=== PATIENT | female | born 1970 | race Caucasian/White ===

== ENCOUNTER 2020-04-22 17:30 | Outpatient (CLI) | payer OTHER | END 2020-04-22 17:31 | disposition home or self-care (01) | LOC: SLEEPLAB 17:30 | PROVIDERS: ATTEND Family Medicine | DX: G47.33 Obstructive sleep apnea (adult) (pediatric) (principal); R53.83 Other fatigue | CPT/HCPCS: 95806 ==

== ENCOUNTER 2020-10-10 10:16 | Outpatient (CLI) | payer OTHER ==
[2020-10-10 12:25] LABS: Bilirubin Neg (Negative); Blood, Urine Negative (Negative); Clarity Clear (Clear); Glucose, Urine (Dipstick) Normal (Negative); Ketone, Urine Negative (Negative); Leukocyte Negative (Negative); Nitrite Negative (Negative); Protein, Urine (Dipstick) Negative (Neg-Trace); Urobilinogen Normal mg/dL (Less than 2)
[2020-10-10 12:41] LABS: #Basophils 0.1 10x3/uL (0.0-0.2); #Eosinphils 0.2 10x3/uL (0.0-0.5); #Monocytes 0.8 10x3/uL (0.0-1.1); #Neutrophils 4.3 10x3/uL (1.5-8.4); %Basophils 0.8 % (0.0-2.0); %Eosinophils 2.8 % (0.0-6.0); %Lymphocytes 37.9 % (18.0-47.0); %Monocytes 8.9 % (0.0-10.0); Hemoglobin 12.6 g/dL (12.0-15.5); Mean Corpuscular HGB CONC 33.7 g/dL (32.0-36.0); Mean Corpuscular Hemoglobin 27.9 pg (27.0-33.0); Mean Corpuscular Volume 82.7 fl (81.6-98.3); Mean Platelet Volume 9.7 fl (7.4-10.4); Platelet Count 347 10x3/uL (150-450); RBC Distribution Width 13.2 % (11.5-14.5); Red Blood Cell (RBC) Count 4.52 10x6/uL (3.90-5.03); White Blood Cell (WBC) Count 8.7 10x3/uL (3.5-10.5)
[2020-10-10 12:52] LABS: RBC/HPF None Seen HPF (0-3)
[2020-10-10 13:12] LABS: INR-International Normal Ratio 0.9; Prothrombin Time 9.3 sec (9.5-12.1)
[2020-10-10 13:14] LABS: Anion Gap 14 mmol/L (10-20); BUN (Urea Nitrogen) 8 mg/dL (7.0-18.7); Calc. Creatinine Clearance 0 mL/min (70-130); Calcium 9.7 mg/dL (7.8-10.44); Carbon Dioxide 25 mmol/L (22-29); Chloride 102 mmol/L (98-107); Glucose 93 mg/dL (70-105); Potassium 4.7 mmol/L (3.5-5.1); Sodium 136 mmol/L (136-145)
[2020-10-11 03:31] LABS: SARS-CoV-2 NAA Rapid Test Not Detected (NotDetected)
== END 2020-10-10 10:17 | disposition home or self-care (01) ==
LOC: LABBT 10:16
PROVIDERS: ATTEND Orthopaedic Surgery
DX: Z01.818 Encounter for other preprocedural examination (principal); Z20.822 Contact with and (suspected) exposure to COVID-19; M17.12 Unilateral primary osteoarthritis, left knee
CPT/HCPCS: 80048; 81001; 85025; 85610; 87081; 87635; U0002; U0003; U0005

== ENCOUNTER 2020-10-15 06:45 | Inpatient (IN) | payer OTHER ==
[2020-10-10 10:42] VITALS: BMI 38.6
[2020-10-15] MEDS ORDERED: Sodium Chloride 0.9% 100 ML ONE ×2 (07:37→07:39)
[2020-10-15] MEDS ORDERED: Tranexamic Acid 1,000 MG/10 ML VIAL ONE (07:37)
[2020-10-15] MEDS ORDERED: Vancomycin HCl 1.5 GM in Sodium Chloride 0.9% 250 ML 300 ML IVPB SCH (07:45)
[2020-10-15] MEDS ORDERED: Fentanyl 100 MCG/2 ML VIAL ONE ×6 (08:06→12:52)
[2020-10-15] MEDS ORDERED: Midazolam HCl 2 mg/2 ml Vial ONE (08:06)
[2020-10-15] MEDS ORDERED: Fentanyl 100 MCG/2 ML VIAL IV PRN (08:24)
[2020-10-15] MEDS ORDERED: traMADol HCl 50 MG TAB PO PRN (08:30)
[2020-10-15] MEDS ORDERED: Ropivacaine HCl/PF 250 ML in Premix Bag 1 BAG NERVE BLCK SCH (08:30)
[2020-10-15] MEDS ORDERED: Ondansetron PF 4 MG/2 ML Vial IVP PRN ×2 (08:30→09:11)
[2020-10-15] MEDS ORDERED: Promethazine HCl 25 MG/ML VIAL IM PRN ×3 (08:30→10:14)
[2020-10-15] MEDS ORDERED: Zolpidem Tartrate 5 MG TAB PO PRN ×2 (08:30→09:11)
[2020-10-15] MEDS ORDERED: Acetaminophen 325 MG TAB PO PRN (09:11)
[2020-10-15] MEDS ORDERED: diphenhydrAMINE 25 MG CAP PO PRN (09:11)
[2020-10-15] MEDS ORDERED: Amitriptyline HCl 10 MG TAB PO PRN (09:12)
[2020-10-15] MEDS ORDERED: Ondansetron PF 4 MG/2 ML Vial ONE (09:46)
[2020-10-15] MEDS ORDERED: Ropivacaine 2% HCl/PF (20 MG/10 ML VIAL) ONE (09:46)
[2020-10-15] MEDS ORDERED: Lidocaine 1% PF 5 ML VIAL ONE (09:46)
[2020-10-15] MEDS ORDERED: PROPOFOL 200 MG/20 ML VIAL ONE (09:46)
[2020-10-15] MEDS ORDERED: diphenhydrAMINE 50 MG/ML VIAL ONE (09:46)
[2020-10-15] MEDS ORDERED: PHENYLEPHRINE-NS 100 MCG/ML 10 ML SYRINGE ONE (09:46)
[2020-10-15] MEDS ORDERED: Dexamethasone 20 MG/5 ML VIAL ONE (09:46)
[2020-10-15] MEDS ORDERED: Ketorolac Tromethamine 30 MG/ML VIAL ONE (09:46)
[2020-10-15] MEDS ORDERED: Ropivacaine 0.5% HCl/PF (150 MG/30 ML VIAL) ONE (09:46)
[2020-10-15] MEDS ORDERED: Meperidine HCl/PF 25 MG/ML VIAL SLOW IVP PRN (10:14)
[2020-10-15] MEDS ORDERED: HYDROmorphone 2 MG/ML VIAL SLOW IVP PRN (10:14)
[2020-10-15] MEDS ORDERED: Promethazine HCl 25 MG/ML VIAL SLOW IVP PRN (10:14)
[2020-10-15] MEDS: CEFAZOLIN 2 GM in Premix Bag 1 BAG IVPB SCH (15:51)
[2020-10-15] MEDS: traMADol HCl 50 MG TAB PO PRN (15:53)
[2020-10-15] MEDS: Ketorolac Tromethamine 30 MG/ML VIAL IVP SCH ×2 (17:01→17:02)
[2020-10-15] MEDS: HYDROcodone/Acetaminophen 10/325 mg Tablet PO PRN ×2 (18:13→18:45)
[2020-10-15] MEDS: Cyclobenzaprine 10 MG TAB PO PRN (18:44)
[2020-10-15] MEDS: Ferrous Gluconate 324 MG TAB PO SCH (20:02)
[2020-10-15] MEDS: Senokot S 8.6-50 MG TAB PO SCH (20:02)
[2020-10-15] MEDS: DULoxetine 60 MG CAP PO SCH (20:26)
[2020-10-15] MEDS: Aspirin 81 mg Enteric Coated Tablet PO SCH (20:26)
[2020-10-16] MEDS: Ketorolac Tromethamine 30 MG/ML VIAL IVP SCH ×5 (00:45→22:54)
[2020-10-16] MEDS: CEFAZOLIN 2 GM in Premix Bag 1 BAG IVPB SCH (00:46)
[2020-10-16] MEDS: HYDROcodone/Acetaminophen 10/325 mg Tablet PO PRN ×5 (00:48→22:53)
[2020-10-16 05:40] LABS: Hemoglobin 10.6 g/dL (12.0-16.0); Mean Corpuscular Hemoglobin 28.8 pg (27.0-31.0); Mean Corpuscular Volume 84.7 fL (78.0-98.0); Mean Platelet Volume 7.1 fL (7.4-10.4); Platelet Count 278 thou/uL (130-400); RBC Distribution Width 12.1 % (11.5-14.5); Red Blood Cell (RBC) Count 3.67 mill/uL (4.20-5.40); White Blood Cell (WBC) Count 14.7 thou/uL (4.8-10.8)
[2020-10-16] MEDS: Levothyroxine Sodium 100 MCG TAB PO SCH (06:28)
[2020-10-16] MEDS: Senokot S 8.6-50 MG TAB PO SCH ×2 (07:40→21:04)
[2020-10-16] MEDS: Aspirin 81 mg Enteric Coated Tablet PO SCH ×2 (07:40→21:00)
[2020-10-16] MEDS: Ferrous Gluconate 324 MG TAB PO SCH ×2 (12:56→21:00)
[2020-10-16] MEDS: Multivitamin W/ Minerals 1 TAB PO SCH (12:57)
[2020-10-16] MEDS: Cyclobenzaprine 10 MG TAB PO PRN (19:19)
[2020-10-16] MEDS: DULoxetine 60 MG CAP PO SCH (21:00)
[2020-10-16] MEDS ORDERED: MAGNESIUM GLYCINATE 120 MG PO SCH ×2 (21:00)
[2020-10-17 05:16] LABS: Hemoglobin 10.3 g/dL (12.0-16.0); Mean Corpuscular HGB CONC 33.6 g/dL (32.0-36.0); Mean Corpuscular Hemoglobin 28.4 pg (27.0-31.0); Mean Corpuscular Volume 84.6 fL (78.0-98.0); Mean Platelet Volume 7.1 fL (7.4-10.4); Platelet Count 255 thou/uL (130-400); RBC Distribution Width 12.3 % (11.5-14.5); Red Blood Cell (RBC) Count 3.61 mill/uL (4.20-5.40); White Blood Cell (WBC) Count 10.8 thou/uL (4.8-10.8)
[2020-10-17] MEDS: Ketorolac Tromethamine 30 MG/ML VIAL IVP SCH (05:45)
[2020-10-17] MEDS: HYDROcodone/Acetaminophen 10/325 mg Tablet PO PRN ×2 (05:45→09:48)
[2020-10-17] MEDS: Levothyroxine Sodium 100 MCG TAB PO SCH (05:45)
[2020-10-17] MEDS: Multivitamin W/ Minerals 1 TAB PO SCH (08:01)
[2020-10-17] MEDS: Senokot S 8.6-50 MG TAB PO SCH (08:01)
[2020-10-17] MEDS: Ferrous Gluconate 324 MG TAB PO SCH (08:01)
[2020-10-17] MEDS: Aspirin 81 mg Enteric Coated Tablet PO SCH (08:02)
[2020-10-17 11:59] VITALS: BP 122/84; TEMP 98.1
[2020-10-17] MEDS: traMADol HCl 50 MG TAB PO PRN (13:19)
== END 2020-10-17 13:44 | disposition home or self-care (01) | DRG 470 ==
LOC: SDC 06:45 → SURG A 09:11 → EDSTATUS 10:15
PROVIDERS: ADMIT Orthopaedic Surgery; ATTEND Orthopaedic Surgery
PROC: 0SRD0J9 Replacement of Left Knee Joint with Synthetic Substitute, Cemented, Open Approach (ICD-10-PCS; principal; 2020-10-15)
DX: M17.12 Unilateral primary osteoarthritis, left knee (principal); Z20.822 Contact with and (suspected) exposure to COVID-19; D64.9 Anemia, unspecified; E03.9 Hypothyroidism, unspecified; Z90.49 Acquired absence of other specified parts of digestive tract; Z79.890 Hormone replacement therapy; Z79.899 Other long term (current) drug therapy
CPT/HCPCS: 36415; 85027; C1713; C1776; J0690; J1100; J1200; J1885; J2250; J2405; J2704; J2795; J3010; J3370; J3490; J7050

== ENCOUNTER 2021-04-18 09:45 | Emergency (ER) | payer OTHER ==
[2021-04-18 10:39] LABS: #Basophils 0.1 thou/uL (0.0-0.2); #Eosinphils 0.4 thou/uL (0.0-0.7); #Lymphocytes 3.2 thou/uL (1.20-3.40); #Monocytes 0.6 thou/uL (0.11-0.59); #Neutrophils 3.1 thou/uL (1.40-6.50); %Eosinophils 5.8 % (0.0-10.0); %Lymphocytes 43.3 % (21.0-51.0); %Monocytes 7.8 % (0.0-10.0); %Neutrophils 42.1 % (42.0-75.0); Hemoglobin 13.6 g/dL (12.0-16.0); Mean Corpuscular HGB CONC 33.8 g/dL (32.0-36.0); Mean Corpuscular Hemoglobin 28.5 pg (27.0-31.0); Mean Corpuscular Volume 84.1 fL (78.0-98.0); Mean Platelet Volume 6.9 fL (7.4-10.4); Platelet Count 317 thou/uL (130-400); RBC Distribution Width 11.6 % (11.5-14.5); Red Blood Cell (RBC) Count 4.77 mill/uL (4.20-5.40); White Blood Cell (WBC) Count 7.4 thou/uL (4.8-10.8)
[2021-04-18 10:55] LABS: ALT (SGPT) 20 U/L (8-55); AST (SGOT) 15 U/L (5-34); Albumin 4.3 g/dL (3.5-5.0); Alkaline Phosphatase 108 U/L (40-110); Anion Gap 14 mmol/L (10-20); BUN (Urea Nitrogen) 12 mg/dL (9.8-20.1); Bilirubin, Total 0.2 mg/dL (0.2-1.2); Calc. Creatinine Clearance 0 mL/min (70-130); Calcium 9.6 mg/dL (7.8-10.44); Carbon Dioxide 23 mmol/L (22-29); Chloride 108 mmol/L (98-107); Globulin 3.2 g/dL (2.4-3.5); Glucose 97 mg/dL (70-105); Potassium 4.5 mmol/L (3.5-5.1); Protein, Total 7.5 g/dL (6.0-8.3); Sodium 140 mmol/L (136-145)
== END 2021-04-18 14:25 | disposition home or self-care (01) ==
LOC: ERS 09:45
DX: M25.562 Pain in left knee (principal); E03.9 Hypothyroidism, unspecified
CPT/HCPCS: 36415; 72148; 80053; 85025; 85652; 86140; 94760

== ENCOUNTER 2022-04-17 16:05 | Outpatient (CLI) | payer BC, OTHER | END 2022-04-17 16:06 | disposition home or self-care (01) | LOC: SCSRAD 16:05 | PROVIDERS: ATTEND Internal Medicine Rheumatology | DX: M25.552 Pain in left hip (principal) ==